=== PATIENT | male | born 1965 | race African-American/Black ===

== ENCOUNTER 2017-12-13 09:42 | Emergency (ER) | payer OTHER ==
[~2017-12-13] VITALS: Ht 177.8 cm; Wt 108.9 kg
[2017-12-13 09:53] VITALS: BP 144/90
[2017-12-13] MEDS ORDERED: ACETAMINOPHEN 500 MG TABLET PO ONE (10:00)
[2017-12-13] MEDS ORDERED: IBUPROFEN 800 MG TABLET. PO ONE (10:00)
--- NOTE | 2017-12-13 10:00 | PHYS DOC ---
Past Medical History Past Medical History: Diabetes-Type II, Hypertension Past Surgical History: No Surgical History Alcohol Use: None Drug Use: None Adult General Chief Complaint Chief Complaint: NECK INJURY HPI HPI Patient is a 52 year old female who presents to the ER for evaluation of right elbow pain. Patient reports that he sustained a mechanical fall yesterday complaining of diffuse muscle "soreness". Patient not taking anything over-the- counter. Patient reporting right shoulder pain, right elbow pain, left ohlder pain. Patient primarily concerned about right elbow pain. Patient feels other areas are related to "soreness". Patient denies any head trauma. Pain is constant, 4-5 out of 10, worse with movement, achy/sharp. Review of Systems Review of Systems Constitutional: Denies fever or chills [] HENT: Denies nasal congestion or sore throat [] Respiratory: Denies cough or shortness of breath [] Cardiovascular: No chest pain, no lower extremity edema GI: Denies abdominal pain, nausea, vomiting, bloody stools or diarrhea [] : Denies dysuria or hematuria [] Musculoskeletal: Pain present Integument: Denies rash or skin lesions [] Neurologic: Denies headache, focal weakness or sensory changes [] All other systems were reviewed and found to be within normal limits, except as documented in this note. Current Medications Current Medications Current Medications Medications (Trade) Dose Ordered Sig/Aaron Start Time Stop Time Status Last Admin Dose Admin Acetaminophen (Tylenol) 1,000 mg 1X ONCE 12/13/17 10:00 12/13/17 10:02 DC 12/13/17 10:16 1,000 MG Ibuprofen (Motrin) 800 mg 1X ONCE 12/13/17 10:00 12/13/17 10:02 DC 12/13/17 10:16 800 MG Allergies Allergies Allergies Coded Allergies Type Severity Reaction Last Updated Verified No Known Drug Allergies 03/08/16 No Physical Exam Physical Exam Constitutional: Morbidly obese, mild distress, nontoxic appearing HENT: Normocephalic, atraumatic, Eyes: PERRLA, EOMI,e. [] Neck: No midline spinal tenderness, mild hypertonicity of right paraspinal muscles. Patient has slightly limited range of motion with a right-sided rotation right-sided sidebending. Cardiovascular: Bilateral radial and DP pulses +2 out of 4 Lungs & Thorax: No respiratory distress [] Skin: Warm, dry, no erythema, no rash. [] Back: No midline spinal tenderness, normal range of motion.[] Extremities no obvious deformities to extremities. Mild diffuse tenderness to right elbow. Mildly decreased range of motion of right elbow. Bilateral radial pulses +2 out of 4. Bilateral distal sensation intact. 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 Bilateral upper extremity strength 5 out of 5.] Neurologic: Alert and oriented X 3, no focal deficits noted. [] Psychologic: Affect normal, judgement normal, mood normal. [] Current Patient Data Vital Signs Vital Signs Date Time Temp Pulse Resp B/P (MAP) Pulse Ox O2 Delivery O2 Flow Rate FiO2 12/13/17 09:53 97.8 91 20 144/90 (108) 95 Room Air 97.8 EKG EKG [] Radiology/Procedures Radiology/Procedures IMPRESSION: 1. No acute osseous findings. 2. Small bony enthesophyte identified in the olecranon process of the site of attachment of the triceps tendon. Electronically signed by: Javier Perez MD (12/13/2017 10:47 AM) [id number][] Course & Med Decision Making Course & Med Decision Making Pertinent Labs and Imaging studies reviewed. (See chart for details) X-ray with no acute findings. Patient with some diffuse soreness related to recent fall. Pt primarily concerned about right elbow with no acute findings on x-ray. Patient advised to continue supportive care. Patient initially declined all attempts for pain control in the ER stating "I don't like to take medications". Patient improved after OTC medications. Patient provided with work note. Discussed continue supportive care. ER return precautions given. Patient verbalized understanding. [] Dragon Disclaimer Dragon Disclaimer This electronic medical record was generated, in whole or in part, using a voice recognition dictation system. Departure Departure Impression: Primary Impression: Elbow sprain Disposition: 01 HOME, SELF-CARE Condition: STABLE Referrals: NON,STAFF (PCP) Patient Instructions: Cervical Sprain, Elbow Contusion Additional Instructions: Thank you for coming to [facility]. Please repeat the attached handouts. Please follow-up with your primary care physician. Return to the ER if your symptoms worsen or you have any other concerns. Please take ibuprofen 600 mg every 6-8 hours for pain. Please alternate this with acetaminophen 1000 mg every 6 hours. Do not exceed 4000 mg of acetaminophen in a 24-hour period. DAVID LOMAX DO Dec 13, 2017 10:00
--- NOTE | 2017-12-13 10:51 | RAD ---
Examination: 3 views of the right elbow HISTORY: History of fall, pain COMPARISON: None available Findings: The alignment of the elbow joint grossly appears unremarkable. There is no acute fracture or dislocation identified.Small enthesophyte identified in the olecranon process is identified of the triceps tendon. IMPRESSION: 1. No acute osseous findings. 2. Small bony enthesophyte identified in the olecranon process of the site of attachment of the triceps tendon. Electronically signed by: Javier Perez MD (12/13/2017 10:47 AM) [id number]
== END 2017-12-13 11:31 | disposition home or self-care (01) ==
LOC: ER 09:42
DX: S53.401A Unspecified sprain of right elbow, initial encounter (principal); M25.511 Pain in right shoulder; M79.662 Pain in left lower leg; E11.9 Type 2 diabetes mellitus without complications; I10 Essential (primary) hypertension; W01.0XXA Fall on same level from slipping, tripping and stumbling without subsequent striking against object, initial encounter; Y93.89 Activity, other specified; Y92.89 Other specified places as the place of occurrence of the external cause; Y99.8 Other external cause status
CPT/HCPCS: 73080; 99284